=== PATIENT | male | born 1995 | race Caucasian/White ===

== ENCOUNTER 2016-07-08 01:55 | Inpatient (IN) | payer BC, OTHER ==
[2016-07-08] MEDS ORDERED: NS 1,000 ML IV ONE ×3 (02:08→10:30)
--- NOTE | 2016-07-08 02:08 | EDPHY ---
H & P HPI/ROS: HPI CHIEF COMPLAINT: Full trauma alert, GCS of 3, fall, head injury, intoxication HISTORY OF PRESENT ILLNESS: This patient 20-year-old male, unknown Past Medical history presents emergency room by EMS as a full trauma alert, GCS of 3 with head injury reported by EMS. EMS reports that he was at a republican tonight, he fell out of chair with head strike hitting the ground. He does have alcohol on board unclear if there is any other drugs. He presents emergency room is a GCS of 3, unresponsive. EMS did give Narcan EN route 2 mg did not do anything. Upon arrival here in the emergency room is brought to ER room 1, was patient has a full trauma. He is a GCS of 3. He has shallow respirations at 6. He has an obvious left parietal hematoma. He is in a cervical collar. He had immediate head to toe trauma exam which did not reveal any injury except for a left posterior occiput hematoma. Upon arrival here he was emergently intubated as he has a GCS of 3 and not protecting his airway. Past Medical History: Unknown medical history Past Surgical History: Unknown surgical history Social History: EMS reports alcohol tonight unknown if other drugs Family History: noncontributory ROS REVIEW OF SYSTEMS: A comprehensive 10 point review of systems is otherwise negative aside from elements mentioned in the history of present illness. Exam Constitutional GCS of 3, smells of alcohol, triage nursing summary reviewed, vital signs reviewed Eyes normal conjunctivae and sclera, EOMI, pupil 2 mm equal. HENT head/neck: Left occiput hematoma, no bony crepitus, neck is in a rigid cervical collar, no obvious step-offs moist mucus membranes, no epistaxis, neck supple/ no meningismus, no raccoon eyes. Respiratory clear to auscultation bilaterally, normal breath sounds, no respiratory distress, no wheezing. Cardiovascular rate normal, regular rhythm, no murmur, no edema, distal pulses normal. Gastrointestinal soft, non-tender, no rebound, no guarding, normal bowel sounds, no distension, no pulsatile mass. Genitourinary no CVA tenderness. Musculoskeletal no midline vertebral tenderness, full range of motion, no calf swelling, no tenderness of extremities, no meningismus, good pulses, neurovascularly intact. Skin pink, warm, & dry, no rash, skin atraumatic. Neurologic GCS of 3 Heme/Lymph/Immune no lymphadenopathy. Differential Diagnosis: Includes but is not limited to in a particular order, drug overdose, polysubstance ingestion, alcohol intoxication, subdural hemorrhage, traumatic subarachnoid, epidural hemorrhage, skull fracture, cervical spine injury, respiratory failure Medical Decision Making: patient made a full trauma alert when he arrived he has a GCS 3, he was intubated emergently upon arrival. His glucose was normal he was given 2 mg IV Narcan of upon arrival that did nothing. Re-evaluation: Procedure: Intubation With cervical spine immobilization in place patient was intubated with a glide scope. Patient was intubated with a 7 0 ET tube direct visualization of the cords were obtained on a glide scope. Did have a lot of secretions in his posterior pharynx including what smells of alcohol and blood. There were no complications with intubation. This was performed by myself. RSI medications were given 20 mg IV etomidate, [address] scan of the head without for trauma The results of the study are Negative for Trauma. The study was read by Dr. Franco. I viewed the images myself on the PACS system. CT scan of the cervical spine without for trauma The results of the study are negative for trauma. The study was read by Dr. Franco I viewed the images myself on the PACS system. Chest x-ray: One view: Image interpreted myself. Endotracheal tube is in appropriate position. It is above the antony. Good lung mancilla. No pneumothorax, no evidence of chest trauma. Cardiac silhouette normal. Alcohol level 466. 0238AM 0257: this patient be admitted to the intensive care unit given that he has respiratory failure, critically high alcohol level is intubated and had head trauma. At this time is hemodynamically stable no acute distress. Source: EMS - Medical/Surgical History Hx Asthma: No Hx Chronic Respiratory Disease: No Hx Diabetes: No Hx Cardiac Disease: No Hx Renal Disease: No Hx Cirrhosis: No Hx Alcoholism: No Hx HIV/AIDS: No Hx Splenectomy or Spleen Trauma: No Other PMH: none - Social History Smoking Status: Never smoked Constitutional: Initial Vital Signs Heart Rate 96 07/08/16 01:56 Respiratory Rate 12 07/08/16 01:56 Blood Pressure 130/100 H 07/08/16 01:56 O2 Sat (%) 99 07/08/16 01:56 O2 Delivery Mode Bag Valve Mask Allergies/Adverse Reactions: No Known Allergies Allergy (Unverified 10/02/14 02:55) Home Medications: Medication Instructions Recorded NK [No Known Home Meds] 07/09/16 Medical Decision Making - Data Points Laboratory Results: Laboratory Results 07/08/16 02:00 07/08/16 02:00 Medications Given: Discontinued Medications Chlorhexidine Gluconate (Peridex) 15 ml PO Q12@08,20 CEDRICK Stop: 01/04/17 19:59 Last Admin: 07/09/16 08:06 Dose: Not Given Etomidate (Etomidate) 20 mg IVP EDNOW ONE Stop: 07/08/16 02:10 Last Admin: 07/08/16 02:00 Dose: 20 mg Sodium Chloride (Ns) 1,000 mls @ 0 mls/hr IV ONCE ONE PRN Reason: Wide Open Stop: 07/08/16 02:09 Last Admin: 07/08/16 01:57 Dose: 1,000 mls Sodium Chloride (Ns) 1,000 mls @ 0 mls/hr IV EDNOW ONE PRN Reason: Wide Open Stop: 07/08/16 03:24 Last Admin: 07/08/16 03:15 Dose: 1,000 mls Propofol (Diprivan 10 Mg/Ml (Premix)) 100 mls @ 0 mls/hr IV CONT CEDRICK; Titrate PRN Reason: Protocol Stop: 01/04/17 03:29 Last Admin: 07/08/16 08:23 Dose: 100 mls Potassium Chloride (Potassium Cl 10 Meq (Premix)) 100 mls @ 100 mls/hr IV Q1H CEDRICK Stop: 07/08/16 05:59 Last Admin: 07/08/16 06:01 Dose: 100 mls Lactated Ringer's (Lr) 1,000 mls @ 150 mls/hr IV CONT CEDRICK Stop: 01/04/17 08:29 Last Admin: 07/08/16 15:11 Dose: 1,000 mls Famotidine/Sodium Chloride (Pepcid 20 Mg (Premix)) 50 mls @ 200 mls/hr IV Q12HRS CEDRICK Stop: 01/04/17 08:59 Last Admin: 07/09/16 09:47 Dose: 50 mls Sodium Chloride (Ns) 1,000 mls @ 0 mls/hr IV .BOLUS ONE PRN Reason: As Directed Stop: 07/08/16 10:31 Last Admin: 07/08/16 10:37 Dose: 1,000 mls Ondansetron HCl (Zofran) 4 mg IVP EDNOW ONE Stop: 07/08/16 03:24 Last Admin: 07/08/16 02:03 Dose: 4 mg Propofol (Diprivan) 40 mg IVP ONCE ONE Stop: 07/08/16 03:24 Last Admin: 07/08/16 03:05 Dose: 40 mg Propofol (Diprivan) 20 mg IVP ONCE ONE Stop: 07/08/16 04:36 Last Admin: 07/08/16 06:22 Dose: Not Given Rocuronium [place] (Zemuron) 100 mg IVP EDNOW ONE Stop: 07/08/16 02:10 Last Admin: 07/08/16 02:00 Dose: 100 mg Departure - Departure Disposition: [facility] Acute Clinical Impression: Alcohol abuse Alcohol intoxication Qualifiers: Complication of substance-induced condition: uncomplicated Qualifier Code: ( F10.120) Alcohol abuse with intoxication, uncomplicated Closed head injury Qualifiers: Encounter type: initial encounter Qualifier Code: (S09.90XA) Unspecified injury of head, initial encounter Scalp hematoma Qualifiers: Encounter type: initial encounter Qualifier Code: (S00.03XA) Contusion of scalp , initial encounter Respiratory failure Qualifiers: Chronicity: acute Respiratory failure complication: hypoxia Qualifier Code: ( J96.01) Acute respiratory failure with hypoxia Condition: Critical
[2016-07-08] MEDS ORDERED: ROCURONIUM 100 MG/10 ML VIAL IVP ONE (02:09)
[2016-07-08] MEDS ORDERED: ETOMIDATE 20 MG/10 ML VIAL IVP ONE (02:09)
[2016-07-08 02:19] LABS: % IMMATURE GRANULYOCYTES 0.3 % (0.0-1.1); ABSOLUTE IMMATURE GRANULOCYTES 0.03 10^3/uL (0.00-0.10); ADD DIFF? NO; ADD MORPH? NO; ADD SCAN? NO; ATYPICAL LYMPHOCYTE FLAG 20 (0-99); FRAGMENT RBC FLAG 0 (0-99); HEMATOCRIT 43.5 % (40.0-51.0); HEMOGLOBIN 15.3 g/dL (13.7-17.5); LEFT SHIFT FLG 0 (0-99); LIPEMIA HEMOLYSIS FLAG 90 (0-99); MEAN CELL HEMOGLOBIN 30.4 pg (27.9-34.1); MEAN CELL HEMOGLOBIN CONCENTR. 35.2 g/dL (32.4-36.7); MEAN CELL VOLUME 86.3 fL (81.5-99.8); MEAN PLATELET VOLUME 9.3 fL (8.7-11.7); PLATELET CLUMPS FLAG 0 (0-99); PLATELET COUNT 279 10^3/uL (150-400); RED BLOOD CELL COUNT 5.04 10^6/uL (4.40-6.38); RED CELL DISTRIBUTION WIDTH 12.1 % (11.5-15.2)
[2016-07-08 02:23] LABS: INR 1.15 (0.83-1.16); PROTIME(PATIENT) 14.6 SEC (12.0-15.0)
[2016-07-08 02:24] LABS: APTT 27.9 SEC (23.0-38.0)
[2016-07-08 02:28] LABS: ALANINE AMINOTRANSFERASE 35 IU/L (21-72); ALBUMIN 4.7 g/dL (3.5-5.0); ALKALINE PHOSPHATASE 74 IU/L (38-126); ANION GAP 22 mEq/L (8-16); ASPARTATE AMINOTRANSFERASE 35 IU/L (17-59); BILIRUBIN,TOTAL 0.5 mg/dL (0.1-1.4); BILIRUBIN-CONJUGATED 0.4 mg/dL (0.0-0.5); BILIRUBIN-UNCONJUGATED 0.1 mg/dL (0.0-1.1); CALCIUM 8.3 mg/dL (8.5-10.4); CARBON DIOXIDE 17 mEq/l (22-31); CHLORIDE 110 mEq/L (97-110); CREATININE 0.6 mg/dL (0.7-1.3); GLOMERULAR FILTRATION RATE > 60; GLUCOSE 139 mg/dL (70-100); SODIUM 149 mEq/L (134-144); TOTAL PROTEIN 7.7 g/dL (6.3-8.2)
[2016-07-08] MEDS ORDERED: BUPIVACAINE/EPI 0.25% 30 ML SDV ONE (02:29)
[2016-07-08] MEDS ORDERED: THROMBIN (RECOMBINANT) 5,000 UNIT VIAL TP ONE (02:33)
[2016-07-08] MEDS ORDERED: AVITENE POWDER 1 GM JAR TP ONE (02:33)
[2016-07-08] MEDS ORDERED: BACITRACIN 50,000 UNITS/10 ML SYR IRR ONE (02:34)
[2016-07-08 02:38] LABS: ETHANOL SERUM 466 mg/dL (0-10); TROPONIN I < 0.012 ng/mL (0-0.034)
[2016-07-08] MEDS ORDERED: PROPOFOL/EMULSION 1,000 MG/100 ML BOTTLE IV ONE (02:53)
[2016-07-08] MEDS ORDERED: PROPOFOL 200 MG/20 ML VIAL IVP ONE ×2 (03:23→04:35)
[2016-07-08] MEDS ORDERED: ONDANSETRON 4 MG/2 ML VIAL IVP ONE (03:23)
[2016-07-08] MEDS ORDERED: POTASSIUM Cl (KCl) 100 ML IV ONE (03:24)
[2016-07-08 03:45] LABS: BASE EXCESS -5.2 mEq/L (-2.5-2.5); BICARBONATE 21 mEq/L (22-26); MEASURED OXYGEN SATURATION 98 % (92-95); PCO2 48 mmHg (34-38); PO2 127 mmHg (65-75); TCO2 23 mEq/L (23-27)
[2016-07-08 03:46] LABS: END TIDAL CO2 39; O2 CONCENTRATIION 50 % (0-100); P/F RATIO 254 RATIO; PATIENT RATE 13; PIP 12.9; PRESSURE SUPPORT 7
--- NOTE | 2016-07-08 03:46 | CPEKG ---
Heart Rate: 98 RR Interval: 612 P-R Interval: 168 QRSD Interval: 98 QT Interval: 360 QTC Interval: 460 P Eure: 75 QRS Eure: 94 T Wave Eure: 53 EKG Severity - BORDERLINE ECG - EKG Impression: SINUS RHYTHM EKG Impression: CONSIDER RIGHT VENTRICULAR HYPERTROPHY EKG Impression: ST ELEV, PROBABLE NORMAL EARLY REPOL PATTERN Electronically Signed By: Cosme Anne 09-Jul-2016 10:56:26
[2016-07-08] MEDS ORDERED: ETOMIDATE 40 MG/20 ML INJ ONE (03:59)
[2016-07-08] MEDS ORDERED: TDAP ADULT 0.5 ML INJ (BOOSTRIX) IM ONE (04:08)
[2016-07-08] MEDS: PROPOFOL/EMULSION 100 ML IV SCH ×2 (05:23→08:23)
[2016-07-08] MEDS: POTASSIUM Cl (KCl) 100 ML IV SCH ×2 (05:23→06:01)
--- NOTE | 2016-07-08 06:21 | GCON ---
[f rep st] CONSULTATION CONSULTATION, HISTORY AND PHYSICAL. HISTORY OF PRESENT ILLNESS: The patient is a 20-year-old man who was drinking heavily tonight and r eportedly fell out of a chair, striking his head on the ground. He was brought into [facility] by EMS as a full trauma activation with a GCS of 6, hemodynamically stable. PAST MEDICAL HISTORY: Unknown. PAST SURGICAL HISTORY: Unknown. MEDICATIONS: Unknown. ALLERGIES: Unknown. FAMILY HISTORY: Unknown. SOCIAL HISTORY: He is drinking heavily tonight at a democrat. REVIEW OF SYSTEMS: Unobtainable. PHYSICAL EXAM: VITAL SIGNS: His temperature was 35.3, pulse 108, blood pressure 149/94. He was sat urating 98% on bag mask ventilation. GCS was 6. HEENT: Pupils were 2 mm and reactive. He had left -sided cephalohematoma. Midface was stable. Trachea was midline. He had no jugular venous distenti on. C, T, L and S spines were without step-offs. He had equal breath sounds bilaterally. HEART: R egular rhythm with mild tachycardia. ABDOMEN: Soft, nondistended. EXTREMITIES: Pelvis was stable. He had no gross deformities of upper or lower extremities. LABS: Pending. His blood alcohol is back at 466. Chest x-ray shows no hemo or pneumothorax. Head CT shows no intracranial hemorrhage or skull fractures. C-spine CT shows no major fractures to my re ad, formal read by the radiologist is pending. ASSESSMENT AND PLAN: Status post fall out of a chair while intoxicated. He has alcohol poisoning re quiring intubation and respiratory support. He will be given IV fluid resuscitation. There is no ev idence of traumatic injury at this point and will likely be able to be extubated once he is sober. /[id number]/MODL
[2016-07-08 06:57] LABS: BASE EXCESS -4.7 mEq/L (-2.5-2.5); BICARBONATE 21 mEq/L (22-26); MEASURED OXYGEN SATURATION 99 % (92-95); PCO2 45 mmHg (34-38); PO2 179 mmHg (65-75); TCO2 23 mEq/L (23-27)
[2016-07-08 07:10] LABS: END TIDAL CO2 45; O2 CONCENTRATIION 50 % (0-100); P/F RATIO 358 RATIO; PATIENT RATE 23; PRESSURE SUPPORT 7; SIMV YES
[2016-07-08 07:11] LABS: PIP 17.7
[2016-07-08] MEDS ORDERED: fentaNYL 100 MCG/2 ML INJ IVP PRN (08:07)
[2016-07-08] MEDS ORDERED: ONDANSETRON 4 MG/2 ML VIAL IVP PRN (08:10)
[2016-07-08] MEDS: FAMOTIDINE 20 MG/NACL 50 ML IV SCH ×2 (08:23→22:19)
--- NOTE | 2016-07-08 09:19 | DX ---
Portable AP Chest July 08, 2016 at 2:23 a.m. Clinical History: 20-year-old male with a witnessed fall, and now post-intubation. Comparison Study: None. Findings: There is an endotracheal tube which terminates 4 cm above the antony. The patient is slight ly rotated the right. Telemetry monitoring lead lines are in place. The cardiac and mediastinal silho uettes are normal in size. The stomach is air-distended. There is no focal infiltrate, pleural effusi on, peripheral interstitial edema, or pneumothorax. The rib cage is intact. Limited assessment of the thoracic vertebral bodies is grossly unremarkable. Impression: Appropriate positioning of the endotracheal tube.
[2016-07-08] MEDS: LR 1,000 ML IV SCH ×2 (10:23→15:11)
--- NOTE | 2016-07-08 10:32 | GCON ---
[f rep st] CONSULTATION PULMONARY/CRITICAL CARE CONSULTATION DATE OF CONSULTATION: 07/08/2016 REFERRING PHYSICIAN: Nancy Baptiste MD REASON FOR REFERRAL: Evaluation and management of respiratory failure. HISTORY: The patient is a 20-year-old male who was brought to the emergency department at about 2 a. m. this morning with acute alcohol intoxication. He apparently had been drinking heavily and fell ou t of a chair with his head striking the ground. He was comatose with a Worthington Coma Scale of 3, so h e was intubated in the emergency department. He was seen by Dr. Baptiste from the trauma service and i nitial evaluation did not demonstrate any intracranial or cervical injuries. A C-collar has been kep t in place. The patient was transferred to the intensive care unit intubated and on a propofol drip. He is now starting to wake up. He currently denies pain. PAST MEDICAL HISTORY: Unknown. MEDICATIONS: Unobtainable. ALLERGIES: Unobtainable. SOCIAL HISTORY: Alcohol use, history and chronicity unknown. FAMILY HISTORY: Unknown. REVIEW OF SYSTEMS: Unobtainable. PHYSICAL EXAMINATION: GENERAL: The patient will open his eyes and follow simple commands. He nods inconsistently to questions, but falls back asleep easily. VITAL SIGNS: His blood pressure is 119/5 4 with a pulse of 112. His temperature is 38.2. Oxygen saturations are 99% on 50% oxygen. HEENT: He has a posterior occipital hematoma; otherwise, atraumatic. Endotracheal tube is in place. NECK: Cervical collar is in place. No palpable adenopathy. CHEST: Clear to auscultation. Inspection nor mal. CARDIAC: Regular rate and rhythm without murmur. ABDOMEN: Soft, nontender. Bowel sounds are present. EXTREMITIES: No clubbing, cyanosis, or edema. LABORATORY DATA: Sodium is 149, with a potassium of 3.0, creatinine is 0.6. Liver function tests ar e normal. CBC is normal. Arterial blood gas shows a pH of 7.30, with a pO2 of 179, CO2 45, and a bi carbonate of 23. On admission, he was on IMV at a rate of 18, tidal volume of 550 with 50% oxygen at the time of this blood gas. On admission, his pH was 7.28, with a CO2 of 48. Alcohol level was 466 . IMAGING: Chest x-ray shows clear lung mancilla. Images were reviewed by me. ASSESSMENT: 1. Hypercapnic respiratory failure. This appears to be due primarily to acute severe alcohol poison ing. The patient is starting to respond now about 7 hours after admission. 2. Acute alcohol intoxication. 3. Head trauma. The patient does not appear to have any significant intracranial abnormalities. Cl inical examination of his neck will be performed once he is more awake to determine if there could be a cervical spine injury. 4. Hypernatremia and hypokalemia. The patient has been receiving IV fluids, including potassium rep lacement. 5. Fever. The patient is at risk for aspiration, but did not have any infiltrates on his initial ch est x-ray. He does not have an elevated white blood count. PLAN: 1. Will wean propofol and consider extubation once the patient is more awake and alert. 2. Recheck potassium. Will give him saline and lactated Ringer's to help bring his sodium down as h e is probably dehydrated. 3. His cervical spine will be cleared by the trauma surgeon once he is more awake and alert. 4. The patient will be given resources for substance abuse once he is extubated and more alert. /[id number]/MODL
[2016-07-08 10:48] LABS: ANION GAP 10 mEq/L (8-16); CALCIUM 7.1 mg/dL (8.5-10.4); CARBON DIOXIDE 23 mEq/l (22-31); CHLORIDE 115 mEq/L (97-110); CREATININE 0.7 mg/dL (0.7-1.3); GLOMERULAR FILTRATION RATE > 60; GLUCOSE 96 mg/dL (70-100); POTASSIUM 4.1 mEq/L (3.5-5.2); SODIUM 148 mEq/L (134-144)
--- NOTE | 2016-07-08 12:09 | TRAUMAPN ---
- Problem/Surgery Performed (1) Alcohol abuse Assessment/Plan: discussed more responsible drinking (2) Respiratory failure Assessment/Plan: extubated this morning Qualifiers: Chronicity: acute Respiratory failure complication: hypoxia Qualifier Code(s): (J96.01) Acute respiratory failure with hypoxia Objective: Vital Signs Temp Pulse Resp BP Pulse Ox 38.2 C 106 H 26 H 120/59 L 97 07/08/16 09:34 07/08/16 11:10 07/08/16 11:10 07/08/16 11:10 07/08/16 11:10 Laboratory Results 07/08/16 10:16 07/07/16 07/08/16 07/09/16 05:59 05:59 05:59 Intake Total 4127 Output Total 3050 Balance 1077 PT 14.6 SEC (12.0-15.0) 07/08/16 02:00 INR 1.15 (0.83-1.16) 07/08/16 02:00 - C-Spine Clearance Cervical Spine Cleared: Yes Provider who Cleared Cervical Spine: Oliva Time Cervical Spine was Cleared: 12:00 Physical Exam - Physical Exam General Appearance: alert Neck: non-tender, full range of motion
--- NOTE | 2016-07-08 14:27 | CT ---
CT of the Head Without Contrast History: Altered mental status, witnessed fall, hit back of head, posterior head laceration, ETOH. Technique: Soft tissue and bone window evaluation is performed. Dose reduction techniques were utilized. Findings: There is no cerebral hemorrhage, edema, midline shift, or hydrocephalus. The ambient cistern is patent. The scott-white junction is well defined. There is no subdural, subarachnoid, or epidural hematoma. There is some mucous in the posterior aspect of the left maxillary sinus. Other sinuses are well aerated. There is no basilar skull fracture. There is a left posteroparietal scalp hematoma with a small amount of gas associated with the hematoma, consistent with a laceration. The underlying posteroparietal bone is normal. Impression: Left posteroparietal scalp hematoma, otherwise negative. Final concordant results discussed with Dr. Lane at 2:58 a.m. [id number] POS 99 MTDD
--- NOTE | 2016-07-08 14:28 | CT ---
CT Cervical Spine Without Contrast History: Altered mental status, witnessed fall, hit back of head, posterior head laceration, ETOH. Technique: Multislice helical CT through the cervical spine without contrast from the skull base to T1. Soft tissue and bone evaluation is performed. Sagittal and coronal reconstructions are obtained and reviewed. Dose reduction techniques were utilized. Findings: No cervical fracture or dislocation is identified. There is no evidence of an obvious cervical disk herniation or epidural hematoma. An ET tube is seen coursing through the cervical airway. There is soft tissue thickening in the back of the nasopharynx and oropharynx that may represent a combination of liquid and food. An underlying mass cannot be excluded. Impression: 1. Likely food and liquid in the nasopharynx and oropharynx. Consider suction. 2. ET tube in good position within the trachea. The tip is in good position with the tip above the antony, seen on the sports centre manager view. 3. Negative cervical spine. Final concordant results discussed with Dr. Lane at 2:58 a.m. [id number] POS 99 MTDD
[2016-07-08] MEDS: CHLORHEXIDINE GLUCONATE 15 ML UDL PO SCH (20:59)
[2016-07-09] MEDS: CHLORHEXIDINE GLUCONATE 15 ML UDL PO SCH (08:06)
[2016-07-09 08:11] VITALS: TEMP 97.9
--- NOTE | 2016-07-09 08:56 | DX ---
Portable Chest at 0604 hours History: Recently extubated. Witnessed fall recently. Comparison: Portable chest July 08, 2016. Findings: The patient has been extubated. The lungs are clear. There is no pneumothorax. Heart size i s normal. Mild rightward curvature of the midthoracic spine is present. No displaced fracture is iden tified. Impression: Interval extubation with no acute findings.
--- NOTE | 2016-07-09 09:39 | SOAPPROG ---
SOAP Progress Note Assessment/Plan: Assessment: 20yo male s/p resp failure, alcohol intoxication. some minimal left forehead pain, tolerating regular diet, no SOB. Has not noticed any injuries. PE awake alert Chest negative fremitus test abdomen soft nontender Neuro alert, oriented Plan: will d/c if labs normal and ok with medicine. 07/09/16 09:37 07/09/16 09:39 Objective: Vital Signs Temp Pulse Resp BP Pulse Ox 36.6 C 88 14 129/85 H 97 07/09/16 08:00 07/09/16 08:00 07/09/16 08:00 07/09/16 08:00 07/09/16 08:00 Laboratory Results 07/08/16 10:16 07/08/16 07/09/16 07/10/16 05:59 05:59 05:59 Intake Total 4127 4766 600 Output Total 3050 1000 Balance 1077 3766 600 PT 14.6 SEC (12.0-15.0) 07/08/16 02:00 INR 1.15 (0.83-1.16) 07/08/16 02:00 ICD10 Worksheet Patient Problems: Problems Problem Status Diagnosed Alcohol abuse Acute Alcohol intoxication Acute Closed head injury Acute Respiratory failure Acute Scalp hematoma Acute
[2016-07-09] MEDS: FAMOTIDINE 20 MG/NACL 50 ML IV SCH (09:47)
[2016-07-09 10:22] LABS: ANION GAP 8 mEq/L (8-16); CALCIUM 9.2 mg/dL (8.5-10.4); CARBON DIOXIDE 29 mEq/l (22-31); CHLORIDE 101 mEq/L (97-110); CREATININE 0.7 mg/dL (0.7-1.3); GLOMERULAR FILTRATION RATE > 60; GLUCOSE 111 mg/dL (70-100); POTASSIUM 3.9 mEq/L (3.5-5.2); SODIUM 138 mEq/L (134-144)
[2016-07-09 11:26] VITALS: BP 116/64; PULSE 76; RESP 12; O2SAT 96
--- NOTE | 2016-07-09 12:32 | PDINTPN ---
[facility] Intern Progress Note Assessment/Plan: Assessment: Acute alcohol intoxication, with a very high BAL of 466. Responsible for suppression of mental status and acute respiratory failure. Doing well now. No signs and symptoms of alcohol withdrawal. Acute respiratory failure: Resolved. Closed head injury: The fairly minor. No neurologic symptoms. Scalp wounds quite small. CT scan of the head negative. Neuro surgery feels patient could be discharged later today. For cognitive evaluation 1st. Plan: Will likely discharge to home after cognitive evaluation has been completed. The importance of not binge drinking to the extent he did, with very high blood alcohol levels was discussed with the patient and his father. Very high levels of alcohol obviously can be fatal. Subjective: Doing well. Extubated, no shortness of breath. Eating. Minor pain regarding his posterior scalp injury. No other significant issues. Objective: Vital Signs Temp Pulse Resp BP Pulse Ox 36.6 C 76 12 116/64 96 07/09/16 08:00 07/09/16 10:00 07/09/16 10:00 07/09/16 10:00 07/09/16 10:00 Laboratory Results 07/09/16 09:54 07/08/16 07/09/16 07/10/16 05:59 05:59 05:59 Intake Total 4127 4766 600 Output Total 3050 1000 Balance 1077 3766 600 PT 14.6 SEC (12.0-15.0) 07/08/16 02:00 INR 1.15 (0.83-1.16) 07/08/16 02:00 Laboratory Tests 07/09/16 09:54 Sodium 138 Potassium 3.9 Chloride 101 D Carbon Dioxide 29 D Anion Gap 8 BUN 7 Creatinine 0.7 Estimated GFR > 60 Glucose 111 H Calcium 9.2 D CXR: Clear Physical Exam - Physical Exam General Appearance: alert, no apparent distress EENT: PERRL/EOMI, other (Minimal scalp injury posteriorly over the crown of his head. Did not require stitches. No bleeding, no oozing, no evidence of infection.) Neck: supple, normal inspection Respiratory: lungs clear, normal breath sounds Cardiac/Chest: regular rate, rhythm Abdomen: normal bowel sounds, non-tender, soft Skin: warm/dry Lymphatic: no adenopathy Extremities: No pedal edema Neuro/Psych: no motor/sensory deficits, No cognition abnormalities ICD10 Worksheet Patient Problems: Problems Problem Status Diagnosed Alcohol abuse Acute Alcohol intoxication Acute Closed head injury Acute Respiratory failure Acute Scalp hematoma Acute
--- NOTE | 2016-07-09 19:48 | GDS ---
[f rep st] DISCHARGE SUMMARY REASON FOR ADMISSION: Acute alcohol intoxication. OTHER PERTINENT DIAGNOSES: 1. Mild head injury. 2. Respiratory failure. HOSPITAL COURSE: Patient is a 20-year-old male, who was admitted for respiratory failure secondary t o alcohol intoxication. He was intubated and subsequently extubated. He had a normal cervical CAT sc an, normal head CAT scan, normal chest x-ray. He was doing well at the time of discharge, tolerating a regular diet, complaining only of mild left parietal pain. He was discharged with no medications. He was discharged after multiple discussions with different providers, including renata Haq the dangers of alcohol intoxication. He will follow up in our office if he has any problems. He c an call for an appointment at [phone]. /[id number]/MODL
== END 2016-07-09 13:14 | disposition home or self-care (01) | DRG 88 ==
LOC: EDUNIT# → F2N 04:39
PROVIDERS: ADMIT Surgery; ATTEND Surgery
PROC: 0BH18EZ Insertion of Endotracheal Airway into Trachea, Via Natural or Artificial Opening Endoscopic (ICD-10-PCS; principal; 2016-07-08)
DX: S06.0X9A Concussion with loss of consciousness of unspecified duration, initial encounter (principal); J96.01 Acute respiratory failure with hypoxia; S00.03XA Contusion of scalp, initial encounter; F10.129 Alcohol abuse with intoxication, unspecified; R40.2432 Glasgow coma scale score 3-8, at arrival to emergency department; E87.0 Hyperosmolality and hypernatremia; R50.9 Fever, unspecified; W07.XXXA Fall from chair, initial encounter; Y92.009 Unspecified place in unspecified non-institutional (private) residence as the place of occurrence of the external cause; Y90.8 Blood alcohol level of 240 mg/100 ml or more
CPT/HCPCS: 80305; 92523-GN; 96374; G0480; J2704

== ENCOUNTER 2016-12-22 02:13 | Emergency (ER) | payer OTHER ==
--- NOTE | 2016-12-22 02:20 | EDPHY ---
H & P Time Seen by Provider: 12/22/16 02:13 HPI/ROS: CHIEF COMPLAINT: Intoxication HISTORY OF PRESENT ILLNESS: Patient is a 21-year-old man found intoxicated in the street. He was unable to ambulate at seen so paramedics brought him here. He denies any co-ingestants other than alcohol. He denies any trauma or injury. Mildly slurred speech. REVIEW OF SYSTEMS: Constitutional: denies: chills, fever, recent illness, recent injury EENTM: denies: blurred vision, double vision, nose congestion Respiratory: denies: cough, shortness of breath Cardiac: denies: chest pain, irregular heart rate, lightheadedness, palpitations Gastrointestinal/Abdominal: denies: abdominal pain, diarrhea, nausea, vomiting, blood streaked stools Genitourinary: denies: dysuria, frequency, hematuria, pain Musculoskeletal: denies: joint pain, muscle pain Skin: denies: lesions, rash, jaundice, bruising Neurological: denies: headache, numbness, paresthesia, tingling, dizziness, weakness Hematologic/Lymphatic: denies: blood clots, easy bleeding, easy bruising Immunologic/allergic: denies: HIV/AIDS, transplant EXAM: GENERAL: Well-appearing, well-nourished and in no acute distress. HEAD: Atraumatic, normocephalic. EYES: Pupils equal round and reactive to light, extraocular movements intact, sclera anicteric, conjunctiva are normal. ENT: TMs normal, nares patent, oropharynx clear without exudates. Moist mucous membranes. NECK: Normal range of motion, supple without lymphadenopathy or JVD. LUNGS: Breath sounds clear to auscultation bilaterally and equal. No wheezes rales or rhonchi. HEART: Regular rate and rhythm without murmurs, rubs or gallops. ABDOMEN: Soft, nontender, normoactive bowel sounds. No guarding, no rebound. No masses appreciated. BACK: No CVA tenderness, no spinal tenderness, step-offs or deformities EXTREMITIES: Normal range of motion, no pitting or edema. No clubbing or cyanosis. NEUROLOGICAL: Cranial nerves II through XII grossly intact. Normal speech, he is able to ambulate . 5/5 strength, normal movement in all extremities, normal sensation PSYCH: Normal mood, normal affect. SKIN: Warm, dry, normal turgor, no visible rashes or lesions. Source: Patient Exam Limitations: No limitations - Medical/Surgical History Hx Asthma: No Hx Chronic Respiratory Disease: No Hx Diabetes: No Hx Cardiac Disease: No Hx Renal Disease: No Hx Cirrhosis: No Hx Alcoholism: No Hx HIV/AIDS: No Hx Splenectomy or Spleen Trauma: No Other PMH: none - Family History Significant Family History: No pertinent family hx - Social History Smoking Status: Never smoked Alcohol Use: Occasionally Drug Use: Marijuana Constitutional: Initial Vital Signs Temperature (C) 36.9 C 12/22/16 02:24 Heart Rate 106 H 12/22/16 02:24 Respiratory Rate 16 12/22/16 02:24 Blood Pressure 136/86 H 12/22/16 02:24 O2 Sat (%) 95 12/22/16 02:24 O2 Delivery Mode Room Air Allergies/Adverse Reactions: No Known Allergies Allergy (Unverified 10/02/14 02:55) Home Medications: Medication Instructions Recorded NK [No Known Home Meds] 07/09/16 Medical Decision Making ED Course/Re-evaluation: The patient is intoxicated but sobering. He is able to ambulate. He is stable vital signs. Police are here and will take him to the alcohol recovery [facility]. I will release him. Differential Diagnosis: Partial list of the Differential diagnosis considered include but were not limited to; intoxication, polysubstance abuse and although unlikely based on the history and physical exam, I also considered head injury, infection, seizure. I discussed these differential diagnoses and the plan with the patient as well as the usual and expected course. The patient understands that the diagnosis is provisional and that in medicine we are not always correct and that further workup is often warranted. Usual and customary warnings were given. All of the patient's questions were answered. The patient was instructed to return to the emergency department should the symptoms at all worsen or return, otherwise to followup with the physician as we discussed. Departure - Departure Disposition: Home, Routine, Self-Care Clinical Impression: Alcohol intoxication Qualifiers: Complication of substance-induced condition: uncomplicated Qualified Code(s): F10.920 - Alcohol use, unspecified with intoxication, uncomplicated Condition: Fair Instructions: Alcohol Intoxication (ED) Additional Instructions: Go directly to the alcohol recovery Center Referrals: Patient,NotPresent [Primary Care Provider] - As per Instructions
[2016-12-22 02:27] VITALS: BP 136/86; PULSE 106; RESP 16; TEMP 98.4; O2SAT 95
== END 2016-12-22 02:45 | disposition home or self-care (01) ==
LOC: EDUNIT#
DX: F10.120 Alcohol abuse with intoxication, uncomplicated (principal)